=== PATIENT | male | born 1960 | race Two or more races ===

== ENCOUNTER 2016-11-29 17:38 | Emergency (ER) | payer BC, OTHER ==
[~2016-11-29] VITALS: Ht 182.9 cm; Wt 122.5 kg
[2016-11-29] MEDS ORDERED: LIDOCAINE 1%-EPI 1:100,000 50 ML VIAL IJ ONE (18:00)
[2016-11-29] MEDS ORDERED: CEFAZOLIN 1 GM VIAL IM ONE (18:00)
[2016-11-29] MEDS ORDERED: MORPHINE SULFATE INJ 2 MG/ML DISP.SYRIN ONE (18:09)
[2016-11-29] MEDS ORDERED: CEFAZOLIN 1 GM ONE (18:09)
[2016-11-29] MEDS ORDERED: ONDANSETRON 4 MG TAB.RAPDIS ONE (18:10)
[2016-11-29] MEDS ORDERED: WATER FOR INJECTION,STERILE 10 ML ONE (18:12)
[2016-11-29] MEDS ORDERED: ONDANSETRON 4 MG TAB.RAPDIS PO ONE (18:30)
[2016-11-29] MEDS ORDERED: MORPHINE SULFATE INJ 2 MG/ML DISP.SYRIN IM ONE (18:30)
--- NOTE | 2016-11-29 18:38 | NUR ---
CALLED [facility], SUPERVISOR ESTERS AND EMULSIFIERS AYESHA PANDYA ON THE PHONE WITH DR SCHUMACHER.
--- NOTE | 2016-11-29 19:10 | NUR ---
PT REPORT RECIVED FROM RAMYUNDO MATTSON FOR VIET
[2016-11-29] MEDS ORDERED: LIDOCAINE 0.5%-EPI 1:200,000 50 ML VIAL ONE (19:30)
[2016-11-29] MEDS ORDERED: GELATIN SPONGE,ABSORBABLE 1 SPONGE SPONGE TP ONE (19:50)
[2016-11-29 22:08] VITALS: BP 136/86
[2016-12-11] MEDS ORDERED: RIVA10TA PO (11:22)
[2016-12-11] MEDS ORDERED: SULF1TAB48 PO (11:22)
== END 2016-11-29 22:10 | disposition home or self-care (01) ==
LOC: ER 17:42
DX: S92.321B Displaced fracture of second metatarsal bone, right foot, initial encounter for open fracture (principal); E78.5 Hyperlipidemia, unspecified; I10 Essential (primary) hypertension; W19.XXXA Unspecified fall, initial encounter; Y93.89 Activity, other specified; Y92.89 Other specified places as the place of occurrence of the external cause; Y99.8 Other external cause status
CPT/HCPCS: 29515; 73630; 96372 ×2; 99284; A4606; A6402; J0690 ×2; J2270 ×2; J3490 ×4; Q0162 ×2; Z7610

== ENCOUNTER 2016-12-07 10:35 | Inpatient (IN) | payer BC ==
[~2016-12-07] VITALS: Ht 182.9 cm; Wt 122.5 kg
--- NOTE | 2016-12-07 10:43 | NUR ---
SENT BY DR WHITMORE FOR ADMISSION FOR LEFT FOOT CELLULITIS. AWAITING MD ORDER
[2016-12-07 11:20] LABS: CALCIUM, SERUM 8.9 mg/dL (8.5-10.1); POTASSIUM 3.4 mmol/L (3.5-5.1)
[2016-12-07 11:23] LABS: INR 1.06 (0.87-1.13)
[2016-12-07 11:26] LABS: BASOPHILS % (AUTO) 0.3 % (0.0-2.0); EOSINOPHILS % (AUTO) 0.2 % (0.0-6.0); HEMATOCRIT 40 % (39-51); HEMOGLOBIN 13.7 g/dL (13.5-17.5); LYMPHOCYTES # (AUTO) 1.3 /CMM (0.8-4.8); LYMPHOCYTES % (AUTO) 10.5 % (20.0-44.0); MEAN CORPUSCULAR HEMOGLOBIN 30 PG (26.0-33.0); MEAN CORPUSCULAR HGB CONC 35 g/dl (31.0-36.0); MEAN CORPUSCULAR VOLUME 87 fL (80-96); MONOCYTES % (AUTO) 8.3 % (2.0-12.0); NEUTROPHILS # (AUTO) 9.7 /CMM (1.8-8.9); NEUTROPHILS % (AUTO) 80.7 % (43.0-81.0); PLATELET COUNT (AUTO) 331 /CMM (150-450); RDW COEFFICIENT OF VARIATION 12.5 (11.5-15.0); RED BLOOD CELL COUNT(AUTO) 4.54 MIL/uL (4.5-6.0); WHITE BLOOD COUNT (AUTO) 12.1 K/uL (4.3-11.0)
[2016-12-07] MEDS ORDERED: SIMV20TA6 PO (11:26)
[2016-12-07] MEDS ORDERED: TERA5CAP4 PO (11:26)
[2016-12-07] MEDS ORDERED: LISI10TA5 PO (11:26)
[2016-12-07] MEDS ORDERED: HYDR25TA4 PO (11:26)
[2016-12-07] MEDS ORDERED: ASPI81TA2 PO (11:26)
[2016-12-07] MEDS ORDERED: ONDANSETRON HCL/PF - ER 4 MG/2 ML VIAL IV ONE (11:30)
[2016-12-07] MEDS ORDERED: MORPHINE SULFATE INJ 2 MG/ML DISP.SYRIN IV ONE (11:30)
--- NOTE | 2016-12-07 11:36 | NUR ---
COURTESY BOOTH CASHIER AT BEDSIDE
[2016-12-07] MEDS ORDERED: ONDANSETRON HCL/PF 4 MG/2 ML VIAL ONE (11:56)
[2016-12-07] MEDS ORDERED: MORPHINE SULFATE INJ 2 MG/ML DISP.SYRIN ONE (11:57)
--- NOTE | 2016-12-07 12:10 | NUR ---
SET UP MECHANIC COIL WINDING MACHINES AT BEDSIDE
--- NOTE | 2016-12-07 12:30 | NUR ---
RECEIVED REPORT FROM RADIOLOGY PT HAS LEFT POPLITEAL DVT. DR SCHUMACHER MADE AWARE
--- NOTE | 2016-12-07 12:43 | NUR ---
REPORT GIVEN TO EUGENIO MATTSON FOR VIET
[2016-12-07] MEDS ORDERED: IBUPROFEN 600 MG TABLET PO ONE (13:21)
[2016-12-07] MEDS ORDERED: IBUPROFEN 600 MG TABLET PO PRN (13:30)
--- NOTE | 2016-12-07 13:30 | NUR ---
FOOD PHOTOGRAPHER NOTES RECEIVED PATIENT A.OX4 DENIES SOB, DIFFICULTY BREATHING AND STATES PAIN IN LEFT LOWER EXTREMITY ONLY WHEN MOVED. PATIENT STATES NO NEEDS AT THIS TIME. MD MANZANO AWARE OF ADMISSION AND DARCY TAKING VITAL SIGNS AND APPLYING TELE. PATIENT APPEARS STABLE AT THIS TIME. CALL LIGHT IN REACH, BED LOWERED AND LOCKED, RAILS UPX3 FOR SAFETY AND WILL ROUND Q2H OR LESS PER NEEDS
--- NOTE | 2016-12-07 13:45 | NUR ---
TV PRODUCTION ASSISTANT NOTES TELE READING NSR 76
--- NOTE | 2016-12-07 14:00 | NUR ---
TELEPHONE BETTING CLERK NOTES PATIENT LEFT LOWER EXTREMITY ELEVATED ON PILLOWS AT ALL TIMES. PATIENT AWARE TO NOT BEAR WEIGHT ON LEG
--- NOTE | 2016-12-07 14:30 | NUR ---
MARKETING GRAPHICS SPECIALIST NOTES MD AWARE OF ADMISSION. ON FLOOR
[2016-12-07] MEDS ORDERED: MAG HYDROX/AL HYDROX/SIMETH 30 ML UDC PO PRN (15:30)
[2016-12-07] MEDS ORDERED: Z GUARD REMEDY 2 OZ OINT TP PRN (15:30)
[2016-12-07] MEDS ORDERED: MAGNESIUM HYDROXIDE 30 ML UDC PO PRN (15:30)
[2016-12-07] MEDS ORDERED: POTASSIUM CHLORIDE 20 MEQ TAB.PRT.SR PO ONE (15:30)
[2016-12-07] MEDS ORDERED: ONDANSETRON HCL/PF 4 MG/2 ML VIAL IVP PRN (15:30)
[2016-12-07] MEDS ORDERED: HYDROCODONE/APAP 5/325MG 1 EACH TABLET PO PRN (15:30)
[2016-12-07] MEDS ORDERED: ZOLPIDEM TARTRATE 5 MG TABLET PO PRN (15:30)
[2016-12-07] MEDS ORDERED: MORPHINE SULFATE INJ 2 MG/ML DISP.SYRIN IV PRN (15:30)
--- NOTE | 2016-12-07 15:42 | NUR ---
METEOROLOGICAL AIDE NOTES DR DIAZ AT BEDSIDE
[2016-12-07] MEDS: IV NS 0.9% 1,000 ML IV PRN (16:16)
[2016-12-07] MEDS ORDERED: FEE PK DOSING 1 MIN EA MC ONE (16:16)
--- NOTE | 2016-12-07 16:52 | NUR ---
TREE LOADER MEAT NOTES PER DR DIAZ NO NEED TO GET WOUND SAMPLE. NO DRAINAGE. ITS NOT APPLICABLE AT THIS TIME
[2016-12-07] MEDS ORDERED: RIVAROXABAN 10 MG TABLET PO SCH (17:00)
--- NOTE | 2016-12-07 17:00 | NUR ---
CHANGE MANAGER NOTES PATIENT PENIS AND SCROTUM VERY SWOLLEN STILL. ASSISTING PATIENT TO GET OUT OF BED MORE AND MOVE AROUND. CONTINUING MEDICATIONS ORDERED
[2016-12-07] MEDS: ASPIRIN 81 MG TAB.CHEW PO SCH (17:04)
--- NOTE | 2016-12-07 17:21 | NUR ---
MEDICAL DETAILIST NOTES PATIENT PROVIDED URINE SAMPLE. TAKEN FOR LAB PICKUP
--- NOTE | 2016-12-07 17:22 | NUR ---
SAW BOSS NOTES DR ZALDIVAR AT BEDSIDE
[2016-12-07] MEDS: VANCOMYCIN 1 GM in IV D5W 250 ML IV SCH (18:20)
[2016-12-07 18:35] LABS: APPEARANCE,URINE CLEAR (CLEAR); COLOR,URINE YELLOW (YELLOW); PH,URINE 6.5 (5.0-8.0); PROTEIN,URINE NEGATIVE (NEGATIVE); UGLUCOSE NEGATIVE (NEGATIVE)
[2016-12-07 18:36] LABS: BILIRUBIN,URINE NEGATIVE (NEGATIVE); BLOOD, URINE NEGATIVE Ery/uL (NEGATIVE); KETONES,URINE NEGATIVE (NEGATIVE); LEUKOCYTE ESTERASE ,URINE NEGATIVE (NEGATIVE); NITRITE, URINE NEGATIVE (NEGATIVE); UROBILINOGEN,URINE 0.2 EU/dL (0.2)
--- NOTE | 2016-12-07 19:23 | NUR ---
BACTERIOLOGIST FOOD CLOSING PATIENT STABLE NO COMPLICATIONS AT THIS TIME. ALL DUE MEDS GIVEN AND ALL NEEDS MET. LEFT LOWER EXTREMITY ELEVATED ON PILLOWS PER MD. IVF RUNNING ORDERED. CARE ENDORSED TO RN FOR VIET.
--- NOTE | 2016-12-07 19:34 | NUR ---
tele/rn opening notes patient in bed having ct scan at bedside. alert, oriented x3. Able to verbalize needs. no s/s of discomfort. Have good eyecontact. skin warm to touch, right leg elevated w/ pillow. no guarding or grimace. will continue to provide care. on tele monitoring w/ normal sinus rhtym. Call lights within reach. urinal within reach. output at this time at 800ml yellow clear color, will continue to monitot. Bed in lock position.
[2016-12-07] MEDS: MEROPENEM 1 G in IV NS 0.9% 100 ML IV SCH (19:42)
[2016-12-07 20:00] VITALS: BP 124/72
[2016-12-07] MEDS: LISINOPRIL (10MG) 10 MG TABLET PO SCH (20:45)
[2016-12-07] MEDS: SIMVASTATIN 20 MG TABLET PO SCH (21:06)
[2016-12-07] MEDS: TERAZOSIN HCL 5 MG CAPSULE PO SCH (21:06)
[2016-12-07] MEDS: ACETAMINOPHEN 325 MG TABLET PO PRN (21:10)
--- NOTE | 2016-12-07 22:57 | NUR ---
tele/rn notes patient verbalized pain 5/10 on left leg, gave norco 5-325 mg tab will monitor pain medication for relief.
[2016-12-08] VITALS (8 sets, daily range): BP systolic 105–132; BP diastolic 60–75
[2016-12-08] MEDS: VANCOMYCIN 1 GM in IV D5W 250 ML IV SCH ×2 (01:18→08:22)
[2016-12-08] MEDS: MEROPENEM 1 G in IV NS 0.9% 100 ML IV SCH ×3 (03:00→16:35)
--- NOTE | 2016-12-08 06:21 | NUR ---
tele/rn closing notes patient in bed, awake, alert x2. Cooperative to care. able to sleep during the night. Pain medication effective, Will endorse to am rn regarding continuity of care.
--- NOTE | 2016-12-08 06:28 | NUR ---
WOUND CARE CONSULT WOUND CARE RECEIVED WOUND CONSULT, PATIENT WITH LUIGI AT 22, WOUND CARE WILL DEFER TREATMENT PLANS TO SURGICAL TEAM AT THIS TIME.
--- NOTE | 2016-12-08 07:18 | NUR ---
PHP LAMP DEVELOPER OPENING NOTES RECEIVED PT AWAKE IN BED IN NO ACUTE SIGNS OF DISTRESS. ALERT AND ORIENTED X4, SAME VERBALLY RESPONSIVE WITH NO C/O PAIN OR DISCOMFORTS AT THIS TIME. ON TELE-MONITORING WIT CURRENT READING OF SR WITH HR ON THE 80'S, DENIES CHEST PAIN. IV ACCESS ON LAC INTACT AND PATENT WITH IVF OF NS @ 75ML INFUSING. LEFT LEG REMAINS SWOLLEN AND ELEVATED WITH PILLOWS. CALL LIGHT WITHIN REACH. BED LOW AND LOCK. WILL CONTINUE TO MONITOR PT ACCORDINGLY.
[2016-12-08 07:49] LABS: BILIRUBIN,TOTAL 0.5 mg/dL (0.2-1.0); CALCIUM, SERUM 8.5 mg/dL (8.5-10.1); CREATININE 0.9 mg/dL (0.6-1.3); MAGNESIUM 2.2 mg/dL (1.8-2.4); PHOSPHORUS 3.1 mg/dL (2.5-4.9); POTASSIUM 3.6 mmol/L (3.5-5.1); TOTAL PROTEIN, SERUM 7.1 g/dL (6.4-8.2)
[2016-12-08 07:50] LABS: INR 1.04 (0.87-1.13); PROTHROMBIN TIME 11.2 SECS (9.5-12.7)
[2016-12-08 07:53] LABS: BASOPHILS # (AUTO) 0.1 /CMM (0.0-0.2); BASOPHILS % (AUTO) 0.6 % (0.0-2.0); EOSINOPHILS # (AUTO) 0.1 /CMM (0.0-0.7); HEMATOCRIT 36 % (39-51); HEMOGLOBIN 12.3 g/dL (13.5-17.5); LYMPHOCYTES # (AUTO) 1.3 /CMM (0.8-4.8); LYMPHOCYTES % (AUTO) 14.7 % (20.0-44.0); MEAN CORPUSCULAR HEMOGLOBIN 30 PG (26.0-33.0); MEAN CORPUSCULAR HGB CONC 34 g/dl (31.0-36.0); MEAN CORPUSCULAR VOLUME 88 fL (80-96); MONOCYTES # (AUTO) 0.8 /CMM (0.1-1.30); MONOCYTES % (AUTO) 8.7 % (2.0-12.0); NEUTROPHILS # (AUTO) 6.6 /CMM (1.8-8.9); PLATELET COUNT (AUTO) 278 /CMM (150-450); RDW COEFFICIENT OF VARIATION 12.2 (11.5-15.0); RED BLOOD CELL COUNT(AUTO) 4.07 MIL/uL (4.5-6.0); WHITE BLOOD COUNT (AUTO) 8.9 K/uL (4.3-11.0)
[2016-12-08] MEDS: LISINOPRIL (10MG) 10 MG TABLET PO SCH ×2 (08:24→21:25)
[2016-12-08] MEDS: ASPIRIN 81 MG TAB.CHEW PO SCH ×2 (08:24→16:40)
[2016-12-08] MEDS: PANTOPRAZOLE 40 MG TABLET.DR PO SCH (08:24)
[2016-12-08] MEDS: HYDROCHLOROTHIAZIDE 25 MG TABLET PO SCH (08:24)
[2016-12-08] MEDS: RIVAROXABAN 10 MG TABLET PO SCH ×2 (08:27→16:39)
--- NOTE | 2016-12-08 10:24 | NUR ---
RN NOTES PHYSICAL THERAPIST SAID THAT THEY CAN'T DO PT EVALUATION TO PT AT THIS TIME BECAUSE PT HAS DX OF DVT OF L POPLITEAL VEIN AND CELLULITIS OF L FOOT POST FX. INFORMED DR MANZANO AND SAID THAT THEY CAN EVALUATE PATIENT TOMORROW. MADE AWARE ALSO OF ALL LAB RESULTS DONE THIS MORNING. WILL CONTINUE TO MONITOR.
[2016-12-08] MEDS: IV NS 0.9% 1,000 ML IV PRN (12:00)
--- NOTE | 2016-12-08 15:43 | NUR ---
RN NOTES COLLECTED SPECIMEN FROM LEFT LEG WOUND. CALLED LAB TO PICK IT UP.
[2016-12-08] MEDS: LACTOBACILLUS RHAMNOSUS GG 1 EACH CAP.SPRINK PO SCH (16:40)
--- NOTE | 2016-12-08 18:53 | NUR ---
ALARM ADJUSTER CLOSING NOTES PATIENT RESTING IN BED WITH FAMILY AT BEDSIDE. ALERT AND ORIENTED X4, SAME VERBALLY RESPONSIVE WITH NO C/O PAIN OR DISCOMFORTS THROUGHOUT THE DAY. ON TELE-MONITORING WIT CURRENT READING OF SR, HR ON THE 80'S, DENIES CHEST PAIN. IV ACCESS ON LAC INTACT AND PATENT WITH IVF OF NS @ 75ML INFUSING. LEFT LEG REMAINS SWOLLEN AND ELEVATED WITH PILLOWS. CALL LIGHT WITHIN REACH. BED LOW AND LOCK. ALL NEEDS ATTENDED WELL. DUE MEDS GIVEN ORDERED AND TOLERATED. WILL ENDORSED TO CERTIFIED TECHNICIAN NURSE FOR VIET.
[2016-12-08] MEDS: VANCOMYCIN 1.25 GM in IV D5W 500 ML IV SCH (19:04)
--- NOTE | 2016-12-08 19:30 | NUR ---
PAPER SORTER NOTE RECEIVED PATIENT FROM DAY SHIFT, PATIENT IS ALERT AND ORIENTEDX4, DENIES RESPIRATORY DISTRESS OR PAIN AT THIS TIME. IV ON LEFT AC IS PATENT AND INTACT, IV ABX IS RUNNING. SRX2, BED IN LOW POSITION, CALL LIGHT WITHIN REACH, WILL CONTINUE TO MONITOR PATIENT.
--- NOTE | 2016-12-08 20:41 | NUR ---
VIDEOGAME TESTER NOTES: RECEIVED PT FROM [facility]. PATIENT IS ALERT AND ORIENTEDX4, DENIES RESPIRATORY DISTRESS OR PAIN AT THIS TIME. IV ON LEFT AC IS PATENT AND INTACT. IV ABX IS CURRENTLY RUNNING. BED IN LOW POSITION, CALL LIGHT WITHIN REACH. LOWER EXTREMITIES ELEVATED. WILL CONTINUE TO MONITOR PATIENT.
--- NOTE | 2016-12-08 20:45 | NUR ---
ENGINEERING TECHNICIAN PARKING NOTE GAVE REPORT TO JAY MATTSON DUE TO CHANGE OF ASSIGNMENT.
[2016-12-08] MEDS: TERAZOSIN HCL 5 MG CAPSULE PO SCH (21:25)
[2016-12-08] MEDS: SIMVASTATIN 20 MG TABLET PO SCH (21:25)
[2016-12-08] MEDS: ACETAMINOPHEN 325 MG TABLET PO PRN (21:25)
--- NOTE | 2016-12-08 21:25 | NUR ---
APARTMENT MAINTENANCE WORKER NOTES: PT WAS ADMINISTERED TYLENOL 650MG PO. WILL CONTINUE TO MONITOR PT.
[2016-12-09] VITALS (7 sets, daily range): BP systolic 107–136; BP diastolic 62–79
[2016-12-09] MEDS: MEROPENEM 1 G in IV NS 0.9% 100 ML IV SCH ×3 (00:16→16:16)
[2016-12-09] MEDS: VANCOMYCIN 1.25 GM in IV D5W 500 ML IV SCH ×3 (01:43→17:44)
[2016-12-09] MEDS: IV NS 0.9% 1,000 ML IV PRN (05:31)
[2016-12-09 06:39] LABS: BASOPHILS % (AUTO) 0.5 % (0.0-2.0); EOSINOPHILS # (AUTO) 0.1 /CMM (0.0-0.7); EOSINOPHILS % (AUTO) 1.3 % (0.0-6.0); HEMATOCRIT 34 % (39-51); HEMOGLOBIN 11.7 g/dL (13.5-17.5); LYMPHOCYTES # (AUTO) 1.5 /CMM (0.8-4.8); LYMPHOCYTES % (AUTO) 16.5 % (20.0-44.0); MEAN CORPUSCULAR HEMOGLOBIN 30 PG (26.0-33.0); MEAN CORPUSCULAR HGB CONC 34 g/dl (31.0-36.0); MEAN CORPUSCULAR VOLUME 88 fL (80-96); MONOCYTES # (AUTO) 0.8 /CMM (0.1-1.30); MONOCYTES % (AUTO) 9.1 % (2.0-12.0); NEUTROPHILS # (AUTO) 6.5 /CMM (1.8-8.9); NEUTROPHILS % (AUTO) 72.6 % (43.0-81.0); PLATELET COUNT (AUTO) 308 /CMM (150-450); RDW COEFFICIENT OF VARIATION 12.7 (11.5-15.0)
[2016-12-09 06:48] LABS: CALCIUM, SERUM 8.1 mg/dL (8.5-10.1); CREATININE 0.8 mg/dL (0.6-1.3); MAGNESIUM 2.3 mg/dL (1.8-2.4); PHOSPHORUS 3.1 mg/dL (2.5-4.9); POTASSIUM 3.4 mmol/L (3.5-5.1)
--- NOTE | 2016-12-09 07:15 | NUR ---
DRUM DRIER OPERATOR CLOSING NOTES: PT IS ALSO ON TELE AND TELE IS SHOWING SR 86.
--- NOTE | 2016-12-09 07:15 | NUR ---
BATTERY PLATE REMOVER CLOSING NOTES: ALL NEEDS WERE ATTENDED AND ANTICIPATED FOR. PATIENT IS ALERT AND ORIENTEDX4, DENIES RESPIRATORY DISTRESS AT THIS TIME. IV ON LEFT AC IS PATENT AND INTACT. PT IS BEING INFUSED WITH NS AT 75ML/HR. BED IN LOW POSITION, CALL LIGHT WITHIN REACH. LOWER EXTREMITIES ELEVATED. ENDORSED TO AM NURSE FOR VIET.
--- NOTE | 2016-12-09 07:30 | NUR ---
MILLER APPRENTICE AM NOTES RECEIVED PT IN BED, AAO X 4, ON RA, NAD, NO SOB, NO C/O PAIN OR DISCOMFORTS AT THIS TIME. TELEMETRY READS SR HR 89, LAC G18 WITH NS @ 75ML INFUSING WELL, SITE CLEAR. LEFT LEG REMAINS SWOLLEN AND ELEVATED WITH PILLOWS. CARDIAC DIET. NWB ON LLE. CALL LIGHT WITHIN REACH. BED LOW AND LOCK. WILL CONTINUE TO MONITOR PT ACCORDINGLY.
[2016-12-09] MEDS: PANTOPRAZOLE 40 MG TABLET.DR PO SCH (09:16)
[2016-12-09] MEDS: HYDROCHLOROTHIAZIDE 25 MG TABLET PO SCH (09:18)
[2016-12-09] MEDS: LACTOBACILLUS RHAMNOSUS GG 1 EACH CAP.SPRINK PO SCH ×2 (09:18→16:15)
[2016-12-09] MEDS: RIVAROXABAN 10 MG TABLET PO SCH ×2 (09:18→16:15)
[2016-12-09] MEDS: LISINOPRIL (10MG) 10 MG TABLET PO SCH ×2 (09:18→21:25)
[2016-12-09] MEDS: ASPIRIN 81 MG TAB.CHEW PO SCH ×2 (09:18→16:15)
--- NOTE | 2016-12-09 09:30 | NUR ---
TABBER NOTES ADMINISTERED DUE MEDS. ADMINISTERED MERREM IV EARLIER.
[2016-12-09] MEDS ORDERED: POTASSIUM CHLORIDE 20 MEQ TAB.PRT.SR PO ONE (10:30)
[2016-12-09] MEDS ORDERED: BISACODYL (5 MG) 5 MG TABLET.DR PO PRN (10:30)
--- NOTE | 2016-12-09 11:08 | NUR ---
RN NOTES STARTED VANCO IV.
--- NOTE | 2016-12-09 16:16 | NUR ---
CORPORATE DIRECTOR OF HUMAN RESOURCES NOTES STARTED AGUILAR JOHANSEN.
--- NOTE | 2016-12-09 18:39 | NUR ---
WAREHOUSE WORKER 2ND SHIFT CLOSING NOTES PT RESTING IN BED, AAO X 4, ON RA, NAD, NO SOB, NO C/O PAIN OR DISCOMFORTS AT THIS TIME. TELEMETRY READS SR HR 80s TO 90s, LAC G18 WITH NS @ 75ML INFUSING WELL, SITE CLEAR. LEFT LEG REMAINS SWOLLEN AND ELEVATED WITH PILLOWS. CARDIAC DIET. NWB AND SCD ON LLE. CALL LIGHT WITHIN REACH. BED LOW AND LOCK. ALL NEEDS MET. NO OTHER SIGINIFICANT CHANGE IN CONDITION. WILL ENDORSE TO NEXT SHIFT FOR VIET.
--- NOTE | 2016-12-09 19:25 | NUR ---
RN OPEN NOTES RECEIVED PATIENT AWAKE IN BED. A/O X4. NO SIGNS OF DISTRESS OR DISCOMFORT. BREATHING EVEN AND UNLABORED. ON TELE MONITORING WITH SR 89 NOTED. IV ACCESS IN LAC WITH NS INFUSING, PATENT AND INTACT, NO SIGNS OF REDNESS OR INFILTRATION. DENIES ANY PAIN AT THIS TIME. BED IN LOW LOCKED POSITION WITH SIDE RAILS X2. CALL LIGHT WITHIN REACH. WILL CONTINUE TO MONITOR.
[2016-12-09] MEDS: SIMVASTATIN 20 MG TABLET PO SCH (21:25)
[2016-12-09] MEDS: TERAZOSIN HCL 5 MG CAPSULE PO SCH (21:25)
[2016-12-10] VITALS: BP 117/66
[2016-12-10] MEDS: MEROPENEM 1 G in IV NS 0.9% 100 ML IV SCH ×3 (00:46→16:38)
[2016-12-10] MEDS: IV NS 0.9% 1,000 ML IV PRN (00:47)
[2016-12-10] MEDS: VANCOMYCIN 1.25 GM in IV D5W 500 ML IV SCH ×3 (02:12→18:07)
[2016-12-10 04:00] VITALS: BP 110/68
[2016-12-10 06:37] LABS: BASOPHILS % (AUTO) 0.6 % (0.0-2.0); EOSINOPHILS # (AUTO) 0.2 /CMM (0.0-0.7); EOSINOPHILS % (AUTO) 2.3 % (0.0-6.0); HEMATOCRIT 33 % (39-51); HEMOGLOBIN 11.3 g/dL (13.5-17.5); LYMPHOCYTES # (AUTO) 1.6 /CMM (0.8-4.8); LYMPHOCYTES % (AUTO) 20.3 % (20.0-44.0); MEAN CORPUSCULAR HEMOGLOBIN 30 PG (26.0-33.0); MEAN CORPUSCULAR HGB CONC 34 g/dl (31.0-36.0); MEAN CORPUSCULAR VOLUME 88 fL (80-96); MONOCYTES # (AUTO) 0.7 /CMM (0.1-1.30); MONOCYTES % (AUTO) 9.2 % (2.0-12.0); NEUTROPHILS # (AUTO) 5.5 /CMM (1.8-8.9); NEUTROPHILS % (AUTO) 67.6 % (43.0-81.0); PLATELET COUNT (AUTO) 340 /CMM (150-450); RDW COEFFICIENT OF VARIATION 12.4 (11.5-15.0); RED BLOOD CELL COUNT(AUTO) 3.76 MIL/uL (4.5-6.0); WHITE BLOOD COUNT (AUTO) 8.1 K/uL (4.3-11.0)
--- NOTE | 2016-12-10 06:57 | NUR ---
RN CLOSING NOTES PATIENT RESTING IN BED. A/O X4. NO SIGNS OF DISTRESS OR DISCOMFORT. BREATHING EVEN AND UNLABORED. ON TELE MONITORING WITH SR 78 NOTED. IV ACCESS IN LAC WITH NS INFUSING, PATENT AND INTACT, NO SIGNS OF REDNESS OR INFILTRATION. DENIES ANY PAIN AT THIS TIME. ALL NEEDS MET. NO SIGNIFICANT CHANGES THROUGH THE NIGHT. BED IN LOW LOCKED POSITION WITH SIDE RAILS X2. CALL LIGHT WITHIN REACH. WILL ENDORSE TO AM SHIFT FOR VIET.
[2016-12-10 07:12] LABS: CREATININE 0.8 mg/dL (0.6-1.3); MAGNESIUM 2.3 mg/dL (1.8-2.4); PHOSPHORUS 3.3 mg/dL (2.5-4.9); POTASSIUM 3.2 mmol/L (3.5-5.1)
[2016-12-10 08:00] VITALS: BP 126/73
[2016-12-10] MEDS: PANTOPRAZOLE 40 MG TABLET.DR PO SCH (08:14)
[2016-12-10] MEDS: LACTOBACILLUS RHAMNOSUS GG 1 EACH CAP.SPRINK PO SCH ×2 (09:05→16:36)
[2016-12-10] MEDS: RIVAROXABAN 10 MG TABLET PO SCH ×2 (09:06→16:37)
[2016-12-10] MEDS: ASPIRIN 81 MG TAB.CHEW PO SCH ×2 (09:06→16:36)
[2016-12-10] MEDS: HYDROCHLOROTHIAZIDE 25 MG TABLET PO SCH (09:07)
[2016-12-10] MEDS: LISINOPRIL (10MG) 10 MG TABLET PO SCH ×2 (09:07→22:17)
--- NOTE | 2016-12-10 09:30 | NUR ---
EDGE GRINDER NOTES ADMINISTERED DUE MEDS ADMINISTERED MERREM IV.
[2016-12-10] MEDS: POTASSIUM CL. PREMIX PERIPHER. 50 ML IV SCH ×4 (10:40→13:53)
--- NOTE | 2016-12-10 10:40 | NUR ---
APPLICATION INTEGRATION ENGINEER NOTE STARTED VANCO IV. STARTED KLC IV BAG #1.
--- NOTE | 2016-12-10 11:41 | NUR ---
COMMODITY LEAD NOTE STARTED KL IV BAG #2.
--- NOTE | 2016-12-10 12:52 | NUR ---
MOTOR RACER NOTE STARTED KL IV BAG #3.
--- NOTE | 2016-12-10 13:53 | NUR ---
SR. PAYROLL MANAGER NOTE STARTED KL IV BAG #4.
[2016-12-10 16:00] VITALS: BP 118/73
--- NOTE | 2016-12-10 16:36 | NUR ---
WINTERIZER NOTES STARTED AGUILAR JOHANSEN.
[2016-12-10 18:00] VITALS: BP 118/73
--- NOTE | 2016-12-10 18:07 | NUR ---
MS RN NOTES STARTED VANCO IV.
--- NOTE | 2016-12-10 18:51 | NUR ---
MS RN CLOSING NOTES PT RESTING IN BED, AAO X 4, ON RA, NAD, NO SOB, NO C/O PAIN OR DISCOMFORTS AT THIS TIME. LAC G18 WITH NS @ 75ML INFUSING WELL, SITE CLEAR. LEFT LEG REMAINS SWOLLEN AND ELEVATED WITH PILLOWS. CARDIAC DIET. NWB AND SCD ON LLE. CALL LIGHT WITHIN REACH. BED LOW AND LOCK. ALL NEEDS MET. NO OTHER SIGINIFICANT CHANGE IN CONDITION. WILL ENDORSE TO NEXT SHIFT FOR VIET.
--- NOTE | 2016-12-10 19:40 | NUR ---
MS/RN NOTES RECEIVED PT. LYING IN BED. AWAKE, ALERT AND ORIENTED X4. BREATHING EVEN AND UNLABORED ON ROOM AIR. NO SOB, RESPIRATORY DISTRESS OR COMPLAINTS OF PAIN NOTED AT THIS TIME. PT. WITH LEFT AC 18 GAUGE PERIPHERAL IV PRESENT, PATENT AND INTACT ADMINISTERING TO PT. NS @ 75 ML/HR. BED IN LOWEST POSITION, CALL LIGHT WITHIN REACH, SIDE RAILS UP X3, WILL CONTINUE TO MONITOR.
[2016-12-10 20:00] VITALS: BP 124/69
[2016-12-10] MEDS: SIMVASTATIN 20 MG TABLET PO SCH (22:17)
[2016-12-10] MEDS: TERAZOSIN HCL 5 MG CAPSULE PO SCH (22:18)
[2016-12-11] MEDS: MEROPENEM 1 G in IV NS 0.9% 100 ML IV SCH ×2 (01:19→08:44)
[2016-12-11] MEDS: IV NS 0.9% 1,000 ML IV PRN (05:14)
[2016-12-11] MEDS ORDERED: VANCOMYCIN 1.25 GM in IV D5W 500 ML IV SCH (06:00)
[2016-12-11 06:46] LABS: BASOPHILS # (AUTO) 0.1 /CMM (0.0-0.2); BASOPHILS % (AUTO) 0.9 % (0.0-2.0); EOSINOPHILS # (AUTO) 0.2 /CMM (0.0-0.7); EOSINOPHILS % (AUTO) 2.6 % (0.0-6.0); HEMATOCRIT 34 % (39-51); HEMOGLOBIN 11.6 g/dL (13.5-17.5); LYMPHOCYTES # (AUTO) 1.9 /CMM (0.8-4.8); LYMPHOCYTES % (AUTO) 25.6 % (20.0-44.0); MEAN CORPUSCULAR HEMOGLOBIN 30 PG (26.0-33.0); MEAN CORPUSCULAR HGB CONC 34 g/dl (31.0-36.0); MEAN CORPUSCULAR VOLUME 88 fL (80-96); MONOCYTES # (AUTO) 0.6 /CMM (0.1-1.30); MONOCYTES % (AUTO) 7.8 % (2.0-12.0); NEUTROPHILS # (AUTO) 4.6 /CMM (1.8-8.9); NEUTROPHILS % (AUTO) 63.1 % (43.0-81.0); PLATELET COUNT (AUTO) 363 /CMM (150-450); RDW COEFFICIENT OF VARIATION 12.3 (11.5-15.0); RED BLOOD CELL COUNT(AUTO) 3.88 MIL/uL (4.5-6.0); WHITE BLOOD COUNT (AUTO) 7.3 K/uL (4.3-11.0)
--- NOTE | 2016-12-11 06:57 | NUR ---
MS/RN NOTES PT. LYING IN BED RESTING. BREATHING EVEN AND UNLABORED ON ROOM AIR. NO SOB, RESPIRATORY DISTRESS OR COMPLAINTS OF PAIN NOTED AT THIS TIME. PT. WITH LEFT AC 18 GAUGE PERIPHERAL IV PRESENT, PATENT AND INTACT ADMINISTERING TO PT. NS @ 75 ML/HR. ALL PT. NEEDS MET. BED IN LOWEST POSITION, CALL LIGHT WITHIN REACH, SIDE RAILS UP X3, WILL ENDORSE TO DAYSHIFT NURSE FOR CONTINUITY OF CARE.
[2016-12-11 07:09] LABS: CALCIUM, SERUM 8.4 mg/dL (8.5-10.1); CREATININE 0.7 mg/dL (0.6-1.3); MAGNESIUM 2.1 mg/dL (1.8-2.4); PHOSPHORUS 3.8 mg/dL (2.5-4.9); POTASSIUM 3.6 mmol/L (3.5-5.1)
--- NOTE | 2016-12-11 07:15 | NUR ---
MS RN NOTES RECEIVED PATIENT IN BED, A/O X4. BREATHING EVEN AND NON LABORED, NO SOB. APPEARS COMFORTABLE IN BED. LEFT FOOT CELLULITIS, NO BLEEDING. LLE ELEVATED WITH PILLOWS. NO C/O PAIN AT THIS TIME. IV NS INFUSING AT 75ML/HR. CALL LIGHT WITH IN REACH. WILL CONT TO MONITOR.
[2016-12-11 08:00] VITALS: BP 114/68
[2016-12-11] MEDS: ASPIRIN 81 MG TAB.CHEW PO SCH (08:33)
[2016-12-11] MEDS: PANTOPRAZOLE 40 MG TABLET.DR PO SCH (08:33)
[2016-12-11] MEDS: HYDROCHLOROTHIAZIDE 25 MG TABLET PO SCH (08:33)
[2016-12-11 08:35] VITALS: BP 114/68
[2016-12-11] MEDS: LISINOPRIL (10MG) 10 MG TABLET PO SCH (08:35)
[2016-12-11] MEDS: RIVAROXABAN 10 MG TABLET PO SCH (08:35)
[2016-12-11] MEDS: LACTOBACILLUS RHAMNOSUS GG 1 EACH CAP.SPRINK PO SCH (08:54)
[2016-12-11] MEDS ORDERED: RIVA10TA PO (11:22)
[2016-12-11] MEDS ORDERED: SULF1TAB48 PO (11:22)
--- NOTE | 2016-12-11 11:22 | NUR ---
PATIENT TO BE DISCHARGED HOME WITH HOME HEALTH ORDERED, PATIENT MADE AWARE.
--- NOTE | 2016-12-11 13:40 | NUR ---
MS RN DISCHARGED PATIENT HAS BEEN CLEARED FOR DISCHARGE HOME BY MD. PATIENT IS AMBULATORY WITH ASSIST/CRUTCHES. DISCHARGE INSTRUCTION GIVEN TO THE PATIENT, MARTITA JIMENEZ, FOLLOW UP WITH PRIMARY DOCTOR IN 1 WEEK, PATIENT VERBALIZED UNDERSTANDING. PRESCRIPTION MEDICATION AND ALL BELONGINGS GIVEN TO THE PATIENT PRIOR DC. PATIENT LEFT HOSP IN STABLE CONDITION VIA PRIVATE CAR.
== END 2016-12-11 13:30 | disposition home health service (06) | DRG 602 ==
LOC: ER 10:37 → TELE 13:00 → MED 12-10 16:56
PROVIDERS: ADMIT Internal Medicine; ATTEND Internal Medicine
DX: L03.116 Cellulitis of left lower limb (principal); R53.2 Functional quadriplegia; I82.432 Acute embolism and thrombosis of left popliteal vein; E44.0 Moderate protein-calorie malnutrition; D68.59 Other primary thrombophilia; L02.416 Cutaneous abscess of left lower limb; E66.9 Obesity, unspecified; E78.5 Hyperlipidemia, unspecified; I10 Essential (primary) hypertension; S92.322S Displaced fracture of second metatarsal bone, left foot, sequela; Y99.0 Civilian activity done for income or pay
CPT/HCPCS: 36415; 71010-TC; 80048-TC; 80053-TC; 80061-TC; 80202-TC; 81000-TC; 83540-TC; 83735-TC; 84100-TC; 85025-TC; 85730-TC; 87040-TC; 87070-TC; 87081-TC; 87086-TC; 87186-TC; 93307-TC; 93971-TC; 97001-TC; 97116-TC; 97530-TC; A4606; J2185; J2270; J2405; J3370; J3480; J7030; J7060; Z7610

== ENCOUNTER 2017-02-22 13:15 | Emergency (ER) | payer BC ==
[~2017-02-22] VITALS: Ht 182.9 cm; Wt 108.9 kg
[~2017-02-22 13:15] MED LIST: ASPI81TA2 PO; HYDR25TA4 PO; LISI10TA5 PO; RIVA10TA PO; SIMV20TA6 PO; SULF1TAB48 PO; TERA5CAP4 PO
[2017-02-22 13:20] VITALS: BP 161/98
--- NOTE | 2017-02-22 13:20 | NUR ---
BB SELF C/O OF LEFT SIDED FACIAL NUMBESS AND "FEELING HOT"X 2 HOURS LEAD TANK MECHANIC
== END 2017-02-22 14:55 | disposition home or self-care (01) ==
LOC: ER 13:16
DX: M62.838 Other muscle spasm (principal); E78.5 Hyperlipidemia, unspecified; I10 Essential (primary) hypertension; Z79.01 Long term (current) use of anticoagulants; Z79.82 Long term (current) use of aspirin; Z86.718 Personal history of other venous thrombosis and embolism
CPT/HCPCS: 99281; A4606; Z7610; Z7502

== ENCOUNTER 2024-05-22 17:11 | Emergency (ER) | payer BC, OTHER ==
[~2024-05-22] VITALS: Ht 182.9 cm; Wt 113.4 kg
[~2024-05-22 17:11] MED LIST changes: +ASPI-1169 PO; -ASPI81TA2 PO; +LISI10TA29 PO; -LISI10TA5 PO; +SIMV-46 PO; -SIMV20TA6 PO
[2024-05-22 20:15] VITALS: BP 146/98; TEMP 98.2
[2024-05-22 21:47] VITALS: O2SAT 97
== END 2024-05-22 21:50 | disposition home or self-care (01) ==
LOC: ER 17:27
DX: M62.838 Other muscle spasm (principal); G50.1 Atypical facial pain; R20.0 Anesthesia of skin; E78.5 Hyperlipidemia, unspecified; I10 Essential (primary) hypertension; Z79.01 Long term (current) use of anticoagulants; Z79.82 Long term (current) use of aspirin; Z79.899 Other long term (current) drug therapy
CPT/HCPCS: 70450-TC; 70486-TC

== ENCOUNTER 2024-09-11 08:44 | Inpatient (IN) | payer OTHER ==
[~2024-09-11] VITALS: Ht 182.9 cm; Wt 125.6 kg
[2024-09-11] MEDS ORDERED: CT SWABBABLE VALVE TRANS SET 1 EA INFUS.SET MC ONE (08:58)
[2024-09-11] MEDS ORDERED: IV NS 0.9% 500 ML IV ONE (08:58)
[2024-09-11] MEDS ORDERED: IOHEXOL-350 100 ML VIAL IV ONE (08:58)
[2024-09-11 09:06] LABS: BASOPHILS # (AUTO) 0.1 K/uL (0.0-0.2); BASOPHILS % (AUTO) 1.7 % (0.0-2.0); EOSINOPHILS # (AUTO) 0.2 K/uL (0.0-0.7); EOSINOPHILS % (AUTO) 3.2 % (0.0-6.0); HEMATOCRIT 44 % (39-51); HEMOGLOBIN 14.8 g/dL (13.5-17.5); LYMPHOCYTES % (AUTO) 35.5 % (20.0-44.0); MEAN CORPUSCULAR HEMOGLOBIN 30 PG (26.0-33.0); MEAN CORPUSCULAR HGB CONC 34 g/dl (31.0-36.0); MEAN CORPUSCULAR VOLUME 88 fL (80-96); MONOCYTES # (AUTO) 0.5 K/uL (0.1-1.30); NEUTROPHILS # (AUTO) 2.8 K/uL (1.8-8.9); NEUTROPHILS % (AUTO) 50.6 % (43.0-81.0); PLATELET COUNT (AUTO) 221 K/uL (150-450); RED BLOOD CELL COUNT(AUTO) 4.99 MIL/uL (4.5-6.0); RED CELL DISTRIBUTION WIDTH 13.3 % (11.5-15.0); WHITE BLOOD COUNT (AUTO) 5.5 K/uL (4.3-11.0)
[2024-09-11 09:19] LABS: CALCIUM, SERUM 9.3 mg/dL (8.5-10.1); CREATININE 0.8 mg/dL (0.6-1.3); POTASSIUM 3.5 mmol/L (3.5-5.1)
[2024-09-11 09:20] LABS: INR 0.95 (0.91-1.10); PARTIAL THROMBOPLASTIN TIME 23.6 SEC (24.3-34.3); PROTHROMBIN TIME 10.1 SECS (9.2-11.1)
[2024-09-11] MEDS ORDERED: ASPIRIN EC 325 MG TABLET.DR PO ONE (09:57)
[2024-09-11] MEDS: ASPIRIN EC 325 MG TABLET.DR PO ONE (10:02)
[2024-09-11 10:22] LABS: APPEARANCE,URINE CLEAR (CLEAR); BILIRUBIN,URINE NEGATIVE (NEGATIVE); BLOOD, URINE NEGATIVE Ery/uL (NEGATIVE); COLOR,URINE YELLOW (YELLOW); KETONES,URINE NEGATIVE (NEGATIVE); LEUKOCYTE ESTERASE ,URINE NEGATIVE (NEGATIVE); NITRITE, URINE NEGATIVE (NEGATIVE); PROTEIN,URINE NEGATIVE (NEGATIVE); UGLUCOSE NEGATIVE (NEGATIVE); UROBILINOGEN,URINE 0.2 EU/dL (0.2)
[2024-09-11] MEDS ORDERED: TERA1CAP4 PO (10:59)
[2024-09-11] MEDS ORDERED: OLME40TA18 PO (10:59)
[2024-09-11 12:00] VITALS: BP 126/79; TEMP 98.2; O2SAT 97
[2024-09-11] MEDS ORDERED: MAG HYDROX/AL HYDROX/SIMETH 30 ML UDC PO PRN (13:00)
[2024-09-11] MEDS ORDERED: ACETAMINOPHEN 325 MG TABLET PO PRN (13:00)
[2024-09-11] MEDS ORDERED: ONDANSETRON HCL/PF 4 MG/2 ML VIAL IVP PRN (13:00)
[2024-09-11] MEDS ORDERED: MAGNESIUM HYDROXIDE 30 ML UDC PO PRN (13:00)
[2024-09-11] MEDS ORDERED: Z GUARD REMEDY 4 OZ OINT TP PRN (13:00)
[2024-09-11 14:47] LABS: BASOPHILS % (AUTO) 0.7 % (0.0-2.0); EOSINOPHILS # (AUTO) 0.1 K/uL (0.0-0.7); EOSINOPHILS % (AUTO) 1.2 % (0.0-6.0); HEMATOCRIT 41 % (39-51); HEMOGLOBIN 14.3 g/dL (13.5-17.5); LYMPHOCYTES # (AUTO) 1.6 K/uL (0.8-4.8); LYMPHOCYTES % (AUTO) 27.1 % (20.0-44.0); MEAN CORPUSCULAR HEMOGLOBIN 31 PG (26.0-33.0); MEAN CORPUSCULAR HGB CONC 35 g/dl (31.0-36.0); MEAN CORPUSCULAR VOLUME 87 fL (80-96); MONOCYTES # (AUTO) 0.3 K/uL (0.1-1.30); MONOCYTES % (AUTO) 5.8 % (2.0-12.0); NEUTROPHILS # (AUTO) 3.8 K/uL (1.8-8.9); NEUTROPHILS % (AUTO) 65.2 % (43.0-81.0); PLATELET COUNT (AUTO) 216 K/uL (150-450); RED BLOOD CELL COUNT(AUTO) 4.66 MIL/uL (4.5-6.0); RED CELL DISTRIBUTION WIDTH 13.1 % (11.5-15.0); WHITE BLOOD COUNT (AUTO) 5.9 K/uL (4.3-11.0)
[2024-09-11 14:54] LABS: ERYTHROCYTE SEDIMENTATION RATE 7 MM/HR (0-20)
[2024-09-11 15:03] LABS: ALANINE AMINOTRANSFERASE 37 U/L (12-78); ALBUMIN 3.9 g/dL (3.4-5.0); ALKALINE PHOSPHATASE 47 U/L (46-116); ASPARTATE AMINOTRANSFERASE 21 U/L (15-37); BILIRUBIN,TOTAL 0.5 mg/dL (0.2-1.0); CALCIUM, SERUM 9.4 mg/dL (8.5-10.1); CARBON DIOXIDE 28 mmol/L (21-32); CHLORIDE 105 mmol/L (98-107); CREATININE 0.7 mg/dL (0.6-1.3); GLUCOSE 114 mg/dL (74-106); POTASSIUM 3.6 mmol/L (3.5-5.1); SODIUM SERUM 141 mmol/L (136-145); TOTAL PROTEIN, SERUM 7.3 g/dL (6.4-8.2); UREA NITROGEN, BLOOD 11 mg/dL (7-18)
[2024-09-11 15:11] LABS: CHOLESTEROL 141 mg/dL (<200); HDL CHOLESTEROL 69 mg/dL (40-60); LDL 63 mg/dL (0-99); TRIGLYCERIDES 26 mg/dL (30-150)
[2024-09-11 15:12] LABS: AMPHETAMINE, URINE NEGATIVE (NEGATIVE); BARBITURATE, URINE NEGATIVE (NEGATIVE); BENZODIAZEPINE, URINE NEGATIVE (NEGATIVE); CANNABINOID, URINE NEGATIVE (NEGATIVE); COCCAINE, URINE NEGATIVE (NEGATIVE); OPIATE, URINE NEGATIVE (NEGATIVE); PHENCYCLIDINE SCREEN,URINE NEGATIVE (NEGATIVE)
[2024-09-11 16:48] VITALS: BP 119/77; TEMP 98.1; O2SAT 98
[2024-09-11] MEDS: BLOOD SUGAR DIAGNOSTIC 1 EACH STRIP IN SCH (17:53)
[2024-09-11] MEDS: ASPIRIN 81 MG TAB.CHEW PO SCH (17:53)
[2024-09-11] MEDS ORDERED: BLOOD SUGAR DIAGNOSTIC 1 EACH STRIP IN SCH (18:00)
[2024-09-11 20:00] VITALS: BP 119/76; TEMP 98.1; O2SAT 95
[2024-09-11] MEDS: SIMVASTATIN 20 MG TABLET PO SCH (21:15)
[2024-09-11 21:37] VITALS: BP 119/76; TEMP 98.1; O2SAT 95
[2024-09-12 04:00] VITALS: BP 109/63; TEMP 97.7; O2SAT 94
[2024-09-12 04:33] VITALS: BP 109/63; TEMP 97.7; O2SAT 94
[2024-09-12 06:38] LABS: BASOPHILS % (AUTO) 0.7 % (0.0-2.0); EOSINOPHILS # (AUTO) 0.2 K/uL (0.0-0.7); EOSINOPHILS % (AUTO) 3.5 % (0.0-6.0); HEMATOCRIT 41 % (39-51); HEMOGLOBIN 13.9 g/dL (13.5-17.5); LYMPHOCYTES # (AUTO) 1.6 K/uL (0.8-4.8); LYMPHOCYTES % (AUTO) 30.1 % (20.0-44.0); MEAN CORPUSCULAR HEMOGLOBIN 30 PG (26.0-33.0); MEAN CORPUSCULAR HGB CONC 34 g/dl (31.0-36.0); MEAN CORPUSCULAR VOLUME 88 fL (80-96); MONOCYTES # (AUTO) 0.4 K/uL (0.1-1.30); MONOCYTES % (AUTO) 7.8 % (2.0-12.0); NEUTROPHILS # (AUTO) 3.1 K/uL (1.8-8.9); NEUTROPHILS % (AUTO) 57.9 % (43.0-81.0); PLATELET COUNT (AUTO) 212 K/uL (150-450); RED BLOOD CELL COUNT(AUTO) 4.71 MIL/uL (4.5-6.0); RED CELL DISTRIBUTION WIDTH 13.3 % (11.5-15.0); WHITE BLOOD COUNT (AUTO) 5.3 K/uL (4.3-11.0)
[2024-09-12 07:18] LABS: CALCIUM, SERUM 9.3 mg/dL (8.5-10.1); CREATININE 0.8 mg/dL (0.6-1.3); MAGNESIUM 2.2 mg/dL (1.8-2.4); PHOSPHORUS 4.2 mg/dL (2.5-4.9); POTASSIUM 3.5 mmol/L (3.5-5.1)
[2024-09-12 07:30] VITALS: BP 123/80; TEMP 97.5; O2SAT 97
[2024-09-12 08:36] VITALS: BP 123/80
[2024-09-12] MEDS: LOSARTAN POTASSIUM 50 MG TABLET PO SCH (08:36)
== END 2024-09-12 15:15 | disposition home or self-care (01) | DRG 69 ==
LOC: ER 08:46 → TELE 11:07
PROVIDERS: ADMIT Internal Medicine; ATTEND Internal Medicine
DX: G45.9 Transient cerebral ischemic attack, unspecified (principal); R20.2 Paresthesia of skin; I10 Essential (primary) hypertension; E78.5 Hyperlipidemia, unspecified; Z79.01 Long term (current) use of anticoagulants; E66.9 Obesity, unspecified; Z79.899 Other long term (current) drug therapy; Z86.718 Personal history of other venous thrombosis and embolism; Z68.37 Body mass index [BMI] 37.0-37.9, adult; R29.700 NIHSS score 0
CPT/HCPCS: 36415; 70450-TC; 70496-TC; 70498-TC; 80048-TC; 80053-TC; 80061-TC; 82962-TC; 83735-TC; 84100-TC; 84443-TC; 84484-TC; 85025-TC; 85652-TC; 85730-TC; 92526; 92611-TC; 97112-TC; 97116-TC; 97530-TC; G0378; J7040; Q9967

== ENCOUNTER 2024-10-01 13:21 | Emergency (ER) | payer OTHER ==
[~2024-10-01] VITALS: Ht 182.9 cm; Wt 117.5 kg
[~2024-10-01 13:21] MED LIST changes: -LISI10TA29 PO; +OLME40TA18 PO; -RIVA10TA PO; -SULF1TAB48 PO; +TERA1CAP4 PO; -TERA5CAP4 PO
[2024-10-01 13:55] LABS: BASOPHILS # (AUTO) 0.2 K/uL (0.0-0.2); BASOPHILS % (AUTO) 3.3 % (0.0-2.0); EOSINOPHILS % (AUTO) 0.7 % (0.0-6.0); HEMATOCRIT 41 % (39-51); HEMOGLOBIN 14.4 g/dL (13.5-17.5); LYMPHOCYTES # (AUTO) 1.2 K/uL (0.8-4.8); LYMPHOCYTES % (AUTO) 21.4 % (20.0-44.0); MEAN CORPUSCULAR HEMOGLOBIN 30 PG (26.0-33.0); MEAN CORPUSCULAR HGB CONC 35 g/dl (31.0-36.0); MEAN CORPUSCULAR VOLUME 87 fL (80-96); MONOCYTES # (AUTO) 0.3 K/uL (0.1-1.30); MONOCYTES % (AUTO) 5.3 % (2.0-12.0); NEUTROPHILS # (AUTO) 3.9 K/uL (1.8-8.9); NEUTROPHILS % (AUTO) 69.3 % (43.0-81.0); PLATELET COUNT (AUTO) 232 K/uL (150-450); RED BLOOD CELL COUNT(AUTO) 4.75 MIL/uL (4.5-6.0); WHITE BLOOD COUNT (AUTO) 5.6 K/uL (4.3-11.0)
[2024-10-01 14:02] LABS: CALCIUM, SERUM 9.1 mg/dL (8.5-10.1); CREATININE 0.9 mg/dL (0.6-1.3); POTASSIUM 4.1 mmol/L (3.5-5.1)
[2024-10-01 14:07] LABS: ALBUMIN 4.1 g/dL (3.4-5.0); BILIRUBIN,DIRECT 0.2 mg/dL (0.0-0.2); BILIRUBIN,TOTAL 0.6 mg/dL (0.2-1.0); TOTAL PROTEIN, SERUM 7.7 g/dL (6.4-8.2)
[2024-10-01 14:26] LABS: APPEARANCE,URINE CLEAR (CLEAR); BILIRUBIN,URINE Negative (NEGATIVE); BLOOD, URINE Negative Ery/uL (NEGATIVE); COLOR,URINE YELLOW (YELLOW); KETONES,URINE 40 mg/dL (NEGATIVE); LEUKOCYTE ESTERASE ,URINE Negative (NEGATIVE); NITRITE, URINE NEGATIVE (NEGATIVE); PH,URINE 5.5 (5.0-8.0); PROTEIN,URINE Negative (NEGATIVE); UGLUCOSE Negative (NEGATIVE); UROBILINOGEN,URINE 0.2 EU/dL (0.2)
[2024-10-01 14:39] LABS: ADD URINE CULTURE NO; BACTERIA,URINE Rare /HPF (None Seen); RBC,URINE 0-2 /HPF (0-2); SQUAMOUS EPITHELIAL CELL,UR 0-2 /HPF (None Seen); WBC,URINE 0-2 /HPF (0-3)
[2024-10-01] MEDS ORDERED: NAPR-1009 PO (16:18)
[2024-10-01 16:32] VITALS: BP 134/78; TEMP 98.6; O2SAT 95
== END 2024-10-01 16:32 | disposition home or self-care (01) ==
LOC: ER 13:24
DX: R10.31 Right lower quadrant pain (principal); I10 Essential (primary) hypertension; Z79.82 Long term (current) use of aspirin; Z79.899 Other long term (current) drug therapy
CPT/HCPCS: 36415; 80048-TC; 80076-TC; 81001; 83690-TC; 85025-TC

== ENCOUNTER 2024-10-21 23:19 | Emergency (ER) | payer OTHER ==
[~2024-10-21] VITALS: Ht 172.7 cm; Wt 99.8 kg
[~2024-10-21 23:19] MED LIST changes: +NAPR-1009 PO
[2024-10-22 00:09] LABS: BASOPHILS % (AUTO) 0.5 % (0.0-2.0); EOSINOPHILS # (AUTO) 0.1 K/uL (0.0-0.7); EOSINOPHILS % (AUTO) 1.4 % (0.0-6.0); HEMATOCRIT 42 % (39-51); HEMOGLOBIN 14.6 g/dL (13.5-17.5); LYMPHOCYTES % (AUTO) 35.2 % (20.0-44.0); MEAN CORPUSCULAR HEMOGLOBIN 30 PG (26.0-33.0); MEAN CORPUSCULAR HGB CONC 35 g/dl (31.0-36.0); MEAN CORPUSCULAR VOLUME 87 fL (80-96); MONOCYTES # (AUTO) 0.4 K/uL (0.1-1.30); MONOCYTES % (AUTO) 6.3 % (2.0-12.0); NEUTROPHILS # (AUTO) 3.2 K/uL (1.8-8.9); NEUTROPHILS % (AUTO) 56.6 % (43.0-81.0); PLATELET COUNT (AUTO) 212 K/uL (150-450); RED BLOOD CELL COUNT(AUTO) 4.83 MIL/uL (4.5-6.0); WHITE BLOOD COUNT (AUTO) 5.7 K/uL (4.3-11.0)
[2024-10-22 00:21] LABS: CALCIUM, SERUM 9.3 mg/dL (8.5-10.1); CARBON DIOXIDE 24 mmol/L (21-32); CHLORIDE 103 mmol/L (98-107); CREATININE 0.8 mg/dL (0.6-1.3); GLUCOSE 113 mg/dL (74-106); POTASSIUM 3.5 mmol/L (3.5-5.1); SODIUM SERUM 140 mmol/L (136-145); UREA NITROGEN, BLOOD 17 mg/dL (7-18)
[2024-10-22 00:37] LABS: ALANINE AMINOTRANSFERASE 25 U/L (12-78); ALBUMIN 4.2 g/dL (3.4-5.0); ALKALINE PHOSPHATASE 47 U/L (46-116); ASPARTATE AMINOTRANSFERASE 14 U/L (15-37); BILIRUBIN,DIRECT 0.1 mg/dL (0.0-0.2); BILIRUBIN,TOTAL 0.5 mg/dL (0.2-1.0); NT-PRO BNP 52 pg/mL (0-125); TOTAL PROTEIN, SERUM 7.6 g/dL (6.4-8.2)
[2024-10-22 02:00] VITALS: BP 130/78; TEMP 98.5; O2SAT 99
== END 2024-10-22 02:01 | disposition home or self-care (01) ==
LOC: ER 23:22
DX: R20.2 Paresthesia of skin (principal); I10 Essential (primary) hypertension; R06.02 Shortness of breath; Z79.82 Long term (current) use of aspirin; Z79.899 Other long term (current) drug therapy
CPT/HCPCS: 36415; 70450-TC; 71045-TC; 80048-TC; 80076-TC; 82962-TC; 83880; 84484-TC; 85025-TC